=== PATIENT | male | born 1975 | race Caucasian/White ===

== ENCOUNTER 2018-10-01 08:51 | Observation (INO) | payer BC ==
[2018-10-01] MEDS ORDERED: Ondansetron INJ* 2 MG/ML VIAL IV ONE (09:22)
[2018-10-01] MEDS ORDERED: Famotidine IV* 10 MG/ML 2 ML (20 mg) IV ONE (09:22)
--- NOTE | 2018-10-01 09:43 | ED ---
HPI Chest Pain - HPI Summary HPI Summary: Pt is a 43 y/o M presenting to the ED with a chief complaint of chest pain onset around 0730. He reports it came on out of nowhere, was not doing anything specific at the time, and the episode lasted about 20 minutes before it went away. The pain is located on the L side of his chest, close to his armpit, and is described as a stabbing pain. He has episodes of chest pain that are brief and feel like pressure but tend to alleviate spontaneously. In the room, the pt denies current chest pain, diaphoresis, and SOB. He reports lightheadedness and nausea along with the CP. He states he had hamburgers for dinner last night and slept normally. He has smoked 1ppd for about 20 yrs, does not drink, and does not use drugs. He has hx of gout, but no hx HTN, DM, or asthma. His grandfather passed of an ID and his grandmother had CHF. NKDA. - History of Current Complaint Chief Complaint: EDChestPainROMI Time Seen by Provider: 10/01/18 09:10 Hx Obtained From: Patient Onset/Duration: Started Hours Ago, Resolved Timing: Intermittent, Lasting Minutes Initial Severity: Severe Current Severity: Mild Pain Intensity: 2 Pain Scale Used: 0-10 Numeric Chest Pain Location: Left Lateral Chest Pain Radiates: No Character: Sharp/Stabbing, Tightness Aggravating Factor(s): Nothing Alleviating Factor(s): Spontaneous Resolution Associated Signs and Symptoms: Positive: Chest Pain, Lightheadedness, Nausea. Negative: Shortness of Breath, Diaphoresis - Allergy/Home Medications Allergies/Adverse Reactions: Allergies Allergy/AdvReac Type Severity Reaction Status Date / Time No Known Allergies Allergy Verified 10/01/18 09:00 Home Medications: Home Medications Cetirizine* [ZyrTEC 10 MG TAB*] 10 mg PO DAILY 10/01/18 [History Confirmed 10/01] PMH/Surg Hx/FS Hx/Imm Hx Previously Healthy: Yes Endocrine/Hematology History: Denies: Hx Diabetes Cardiovascular History: Denies: Hx Hypertension Respiratory History: Denies: Hx Asthma Infectious Disease History: No Infectious Disease History: Denies: Traveled Outside the [place] in Last 30 Days - Family History Known Family History: Positive: Cardiac Disease - grandfather and grandmother - Social History Alcohol Use: None Hx Substance Use: No Substance Use Type: Reports: None Hx Tobacco Use: Yes Smoking Status (MU): Heavy Every Day Tobacco Smoker Review of Systems Negative: Skin Diaphoresis Positive: Chest Pain Negative: Shortness Of Breath Positive: Nausea Neurological: Other - lightheadedness All Other Systems Reviewed And Are Negative: Yes Physical Exam - Summary Physical Exam Summary: Constitutional: Well-developed, Obese, Alert. (-) Distressed Skin: Warm, Diaphoretic HENT: Normocephalic; Atraumatic Eyes: Conjunctiva normal Neck: Musculoskeletal ROM normal neck. (-) JVD, (-) Stridor, (-) Tracheal deviation Cardio: Rhythm regular, rate normal, Heart sounds normal; Intact distal pulses; The pedal pulses are 2+ and symmetric. Radial pulses are 2+ and symmetric. Pulmonary/Chest wall: Effort normal. (-) Respiratory distress, (-) Wheezes, (-) Rales Abd: Soft, Obese, (-) tenderness, (-) Distension, (-) Guarding, (-) Rebound Musculoskeletal: (-) Edema Neuro: Alert, Oriented x3 Psych: Mood and affect Normal Triage Information Reviewed: Yes Vital Signs On Initial Exam: Initial Vitals Temp Pulse Resp BP Pulse Ox 98.9 F 97 19 156/94 93 10/01/18 08:54 10/01/18 08:54 10/01/18 08:54 10/01/18 08:54 10/01/18 08:54 Vital Signs Reviewed: Yes Diagnostics - Vital Signs Vital Signs Temp Pulse Resp BP Pulse Ox 10/01/18 08:59 78 93 10/01/18 08:54 98.9 F 97 19 156/94 93 - Laboratory Result Diagrams: 10/01/18 09:42 10/01/18 09:42 Lab Statement: Any lab studies that have been ordered have been reviewed, and results considered in the medical decision making process. - Radiology CXR Radiology Interpretation Completed By: Radiologist Summary of Radiographic Findings: No evidence for acute intrathoracic disease. ED physician has reviewed this report. - EKG 0858 Cardiac Rate: NL - 75bpm EKG Rhythm: Sinus Rhythm ST Segment: Non-Specific Ectopy: None Summary of EKG Findings: An EKG at 0858 shows NSR at 75bpm, nonspecific T waves in inferior III, and AvF is flat. There are Q waves in III and AvF without hx of prior, no prior EKG for comparison. Chest Pain Course/Dx - Course Course Of Treatment: Pt is a 43 y/o M presenting to the ED with a chief complaint of chest pain onset around 0730. He reports it came on out of nowhere , was not doing anything specific at the time, and the episode lasted about 20 minutes before it went away. The pain is located on the L side of his chest, close to his armpit, and is described as a stabbing pain. In the room, the pt denies current chest pain, diaphoresis, and SOB. He reports lightheadedness and nausea along with the CP. Pts WBC is slightly elevated but hematology is otherwise nml. CXR shows no evidence for acute intrathoracic disease. An EKG at 0858 shows NSR at 75bpm, nonspecific T waves in inferior III, and AvF is flat. There are Q waves in III and AvF without hx of prior, no prior EKG for comparison. Upon EKG changes, he has a heart score of at least 4. As of 1032, Dr. Pierson will be admitting the pt to [facility] with a dx of typical chest pain. - Diagnoses Provider Diagnoses: Chest pain Discharge - Sign-Out/Discharge Documenting (check all that apply): Patient Departure - Discharge Plan Condition: Stable Disposition: ADMITTED TO [facility] - Billing Disposition and Condition Condition: STABLE Disposition: Admitted to [facility] - Attestation Statements Document Initiated by Netta: Yes Documenting Scribe: Karen Diggs Provider For Whom Netta is Documenting (Include Credential): Angel Reed MD. Scribe Attestation: Karen Lima, scribed for Angel Reed MD. on 10/01/18 at 1649. Scribe Documentation Reviewed: Yes Provider Attestation: The documentation as recorded by the Karen dasilva accurately reflects the service I personally performed and the decisions made by me, Angel Reed MD. Status of Scribe Document: Viewed Consult Consult: 1033 - Spoke with Dr. Pierson about the pt's present condition who will be accepting the pt to [facility].
[2018-10-01 10:00] LABS: ABS Basophils 0.1 10^3/ul (0-0.2); ABS Eosinophils 0.2 10^3/ul (0-0.6); ABS Lymphocytes 2.1 10^3/ul (1.0-4.8); ABS Monocytes 0.7 10^3/ul (0-0.8); ABS Neutrophils 6.1 10^3/ul (1.5-7.7); ABS Nucleated RBC 0 10^3/ul; Eosinophil % 1.9 %; Hematocrit 49 % (36-46); Lymphocyte % 22.5 %; Mean Corpuscular HGB Conc 35 g/dL (31-36); Mean Corpuscular Hemoglobin 29 pg (27-31); Mean Corpuscular Volume 84 fL (80-94); Mean Platelet Volume 9.1 fL (7.4-10.4); Nucleated Red Blood Cells % 0.1; Platelet Count 248 10^3/uL (150-450); Red Blood Count 5.82 10^6 /uL (4.18-5.48); Red Cell Distribution Width 13 % (10.5-15); White Blood Count 9.1 10^3/uL (3.5-10.8)
[2018-10-01] MEDS ORDERED: Lactated Ringers 1000 ML Bag* 1,000 ML IV SCH (10:00)
[2018-10-01 10:07] LABS: Activated Partial Thrombo Time 33.4 seconds (26.0-36.3); INR 0.94 (0.82-1.09)
[2018-10-01 10:25] LABS: Albumin 4.6 g/dL (3.2-5.2); Albumin/Globulin Ratio 1.8 (1-3); BUN/Creatinine Ratio 13.6 (8-20); Calcium 9.7 mg/dL (8.6-10.3); EGFR African American 126.4 (>60); EGFR Non-African American 104.5 (>60); Globulin 2.6 g/dL (2-4); Potassium 4.4 mmol/L (3.5-5.0); Total Bilirubin 0.3 mg/dL (0.2-1.0); Total Protein 7.2 g/dL (6.4-8.9)
[2018-10-01] MEDS ORDERED: Acetaminophen TAB* 325 MG PO PRN (12:11)
[2018-10-01] MEDS ORDERED: Al Hydrox/Mg Hydrox/Simet LIQ* 30 ML UDC PO PRN (12:11)
[2018-10-01] MEDS: Enoxaparin(*) 40 MG/0.4 ML SYR SUBCUT SCH (12:38)
[2018-10-01] MEDS ORDERED: Perflutren Lipid Microsphere* 3 ML VIAL ONE (14:08)
[2018-10-01 14:26] LABS: TSH (Thyroid Stimulating Horm) 1.23 mcIU/mL (0.34-5.60)
--- NOTE | 2018-10-01 15:38 | ECHO ---
*[facility]* [place] [address] Fax #: [phone] Transthoracic Echocardiogram Patient: Elgin, Height: 67 in / Lamont 170.2 cm : 1975 Weight: 229.5 lb / Study Date: 10/01/2018 104.3 kg Age: 43 BP: 132 / 94 Gender: M BMI/BSA: 36 kg/m^2 / HR: 60 bpm 2.15 m^2 *Tool Technician: * Jennifer King *Referring Physician: * Donald Pierson *Reading Physician: * Uma Sevilla Indications: Chest Pain, unspecified. Abnormal EKG. History: Risk factors: Current tobacco use. Conclusions Summary: 1. Impressions: No previous study was available for comparison. 2. Left ventricle: The cavity size is normal. Wall thickness is mildly increased. Systolic function is normal. The estimated ejection fraction is 55-60%. 3. Mitral valve: There is trivial regurgitation. 4. Aortic valve: There is trivial regurgitation. 5. Tricuspid valve: There is trivial regurgitation. 6. Pulmonic valve: There is trivial regurgitation. Study data: Transthoracic echocardiogram. Procedure: Transthoracic echocardiography was performed. Image quality was fair. The study was technically limited due to poor acoustic window availability. Intravenous contrast (Definity, 4 mls) was administered. Complete 2D, spectral Doppler, and color flow Doppler. Location: Bedside. Patient status: Inpatient. Patient room number: 440. Rhythm: Normal sinus rhythm. Findings Left ventricle: The cavity size is normal. Wall thickness is mildly increased. Systolic function is normal. The estimated ejection fraction is 55-60%. Right ventricle: The cavity size is moderately dilated. Systolic function is mildly reduced. The estimated peak pressure is >= 26 mm Hg. Ventricular septum: There is septal flattening of the interventricular septum consistent with RV volume or pressure overload. Left atrium: The atrium is normal in size. Right atrium: The atrium is normal in size. Mitral valve: The leaflets are mildly thickened. Mild thickening of the anterior leaflet. There is no evidence of stenosis. There is trivial regurgitation. Aortic valve: The valve is trileaflet. The leaflets are normal thickness. There is no evidence of stenosis. There is trivial regurgitation. The ratio of LVOT to aortic valve peak velocity is 0.91. The ratio of LVOT to aortic valve mean velocity is 0.84. The mean systolic gradient is 3.0 mm Hg. The peak systolic gradient is 5.0 mm Hg. Tricuspid valve: The leaflets are normal thickness. There is no evidence of stenosis. There is trivial regurgitation. Pulmonic valve: The leaflets are normal thickness. There is no evidence of stenosis. There is trivial regurgitation. The peak systolic gradient is 3.0 mm Hg. Aorta: Ascending aorta: The ascending aorta is appears normal. Aortic arch: The aortic arch is appears normal. The aortic root is not dilated. Pericardium: There is no pericardial effusion. Pulmonary arteries: Not well visualized. Systemic veins: Inferior vena cava: Not well visualized. Measurements Left ventricle Value Ref Right atrium Value Ref SARAH, LAX 5.0 cm 4.2 - 5.8 SI dim, ES 5.2 cm 3.4 - 5.3 ESD, LAX 3.3 cm 2.5 - 4.0 ML dim, ES, A4C 3.9 cm 2.6 - 4.4 FS, LAX 35 % 25 - 43 PW, ED, LAX (H) 1.1 cm 0.6 - 1.0 Aortic valve Value Ref PW/ID, ED, LAX 0.21 --------- Italia diam, ED 2.3 cm --------- SARAH 5.0 cm 4.2 - 5.8 Italia diam/bsa, ED 1.1 cm/m^2 --------- ESD 3.3 cm 2.5 - 4.0 Peak v, S 1.1 m/sec --------- FS 35 % 25 - 43 Mean v, S 0.73 m/sec --------- PW, ED (H) 1.1 cm 0.6 - 1.0 VTI, S 22.0 cm --------- EF 64 % 52 - 72 Mean grad, S 3.0 mm Hg --------- ESV/bsa 20 ml/m^2 11 - 31 Peak grad, S 5.0 mm Hg --------- Mass (H) 210 g 96 - 200 Mass/bsa 98 g/m^2 50 - 102 Mitral valve Value Ref Mass/ht 123.30 g/m --------- Peak E 0.69 m/sec --------- Mass/ht^2.7 49.94 g/m^2.7 --------- Peak A 0.5 m/sec --------- E', lat italia, TDI 11.4 cm/sec >=10.0 Decel time 229 ms - -------- E/e', lat italia, 6 --------- Peak E/A ratio 1.4 ---- ----- TDI E', med italia, TDI 8.8 cm/sec >=7.0 Tricuspid valve Value R ef E/e', med italia, 8 --------- TR peak v 2.14 m/sec < =2.8 TDI Peak RV-RA grad, S 18 mm Hg --------- E', avg, TDI 10.1 cm/sec --------- E/e', avg, TDI 7 <=14 Aortic root Value R ef Root diam 3.2 cm <4.3 LVOT Value Ref Peak alva, S 1 m/sec --------- Ascending aorta Value Ref Mean alva, S 0.62 m/sec --------- AAo AP diam, S 3.4 cm --------- Mean grad, S 2 mm Hg --------- AAo AP diam/bsa, S 1.6 cm/m^2 --------- Ventricular septum Value Ref Aortic arch Value Ref IVS, ED, LAX (H) 1.2 cm 0.6 - 1.0 Arch diam 2.9 cm --------- IVS, ED (H) 1.2 cm 0.6 - 1.0 Arch diam/bsa 1.3 cm/m^2 --------- Right ventricle Value Ref Decending aorta Value Ref SARAH, LAX 3.7 cm --------- Cesar peak alva 1.29 m/sec --------- SARAH minor ax, A4C (H) 5.6 cm 1.9 - 3.5 mid Left atrium Value Ref AP dim, ES 3.80 cm 3.00 - 4.00 ML dim, A4C 4.2 cm --------- Vol/bsa, ES, 1-p 18 ml/m^2 12 - 37 A4C Vol/bsa, ES, A/L 28 ml/m^2 16 - 34 Legend: (L) and (H) janeth values outside specified reference range. Prepared and electronically signed by Uma Sevilla 10/01/2018 15:37
--- NOTE | 2018-10-01 21:59 | HP ---
CC: Dr. Red, [facility]* HISTORY AND PHYSICAL: DATE OF ADMISSION: 10/01/18 PROVIDER: Kyra Brooks NP. PRIMARY CARE PROVIDER: Dr. Red at [facility]. ATTENDING PHYSICIAN WHILE IN THE HOSPITAL: Dr. Donald Pierson* (dictated by Kyra Brooks NP). CHIEF COMPLAINT: Chest pain. HISTORY OF PRESENT ILLNESS: Mr. Eisenberg is a 43-year-old male with no significant past medical history, who presented to the emergency room with complaints of left- sided chest pain. The patient reports that approximately 7: 30 this morning, he developed left-sided chest pain radiating to his left axilla. It lasted for approximately 15 minutes with the first episode and then subsided on its own. He reports after that he had a second episode again on the left chest radiating to his left axillary area that lasted approximately 20 minutes. He reports the pain was at 6, it was stabbing in nature. He reported that he felt nauseous and lightheaded with the pain. He denied any diaphoresis. He also reports that approximately 3 days prior he had the same type pain, not as severe, again on the left side of his chest radiating to his left axillary area, again lasting approximately 15 minutes. The patient reports that nothing made it worse, nothing makes it better. He reports that he is able to walk up a flight of stairs without having to stop or becoming extremely short of breath. He reports that he has been able to carry on his daily activities without any issues, but with the episode of chest pain today, he did feel lightheaded and nauseated, so he presented to the emergency room for further evaluation. While in the emergency room, the patient had routine lab work drawn. He was found to have a negative troponin. His chest pain had subsided prior to evaluation. The patient does report that he smokes a pack a day and has smoked for approximately 20 years. Denies any alcohol or drug use. Due to his chest pain, we were asked to see and evaluate him for admission. PAST MEDICAL HISTORY: None. PAST SURGICAL HISTORY: Ganglion cyst removed. HOME MEDICATION: Zyrtec 10 mg p.o. daily. ALLERGIES: No known drug allergies. FAMILY HISTORY: Grandmother with a history of CHF, grandfather with a history of ID in his 60s. Father with a history of hypertension. Mother, father, and grandparents with diabetes. No reported history of cancer. SOCIAL HISTORY: The patient smokes a pack per day. He has smoked for the past 20 years. He denies any alcohol or illicit drug use. He is a construction person. He is . Surrogate decision maker in the even he is unable to make his own decision is his . He is a full code. REVIEW OF SYSTEMS: He denies any fever or unintended weight loss. He does report left-sided chest pain that radiates to his left axillary area. No edema. No cough or hemoptysis. He does report some mild shortness of breath. He does report nausea. Denies any vomiting, diarrhea, abdominal pain, hematuria , dysuria, focal weakness, or sensory loss. He denies any visual complaints, dysphagia, arthralgias, myalgias, rashes, lesions, open sores, psychosis, or anxiety. PHYSICAL EXAMINATION GENERAL: At this time, Mr. Eisenberg is a 43-year-old male. He is alert and oriented, sitting on the stretcher in the emergency room. He is well developed , well nourished, in no acute distress. VITAL SIGNS: Blood pressure 150/82, temperature 96.1, pulse 77, respirations are 20, O2 saturation 97%. HEENT: Head is atraumatic, normocephalic. Eyes: EOMs are intact. Sclerae anicteric and not pale. Oral mucosa appeared to be moist. NECK: Supple. LUNGS: Clear to auscultation bilaterally. No wheezes, rales, or rhonchi. CHEST: He does have tenderness to palpation to the left axillary area, but does report this is not as sharp as the pain he has been experiencing. CARDIAC: S1, S2. Regular rate and rhythm. No murmurs, rubs, or gallops. ABDOMEN: Soft and nontender. Bowel sounds are present x4. MUSCULOSKELETAL: He is able to move all 4 extremities with 5/5 strength. There is no clubbing or cyanosis. There is no edema. Pedal pulses are +2 bilaterally. Skin: Intact. NEUROLOGIC: He is awake, alert and oriented x3. Speech is clear. Thought processes intact. There is no gross focal deficit. PSYCHIATRIC: He denies any. He is appropriate and calm. DIAGNOSTIC STUDIES/LAB DATA: WBCs were 9.1, RBCs 5.8, hemoglobin 17.0, hematocrit was 49, platelet count was 248. INR 0.94. APTT was 33.4. Sodium 139, potassium 4, chloride 107, carbon dioxide is 25, anion gap of 7, BUN is 11 , creatinine 0.81, glucose is 104. Hemoglobin A1c is 6.0, lactic acid is 1.3, calcium 9.7, magnesium 2.0. ASTs were 23, ALTs were 39, alkaline phosphatase was 63, troponin was 0.00. BNP was 7. TSH was 123. He had a chest x-ray, radiologist's impression: No evidence of intrathoracic disease. He had an electrocardiogram, which showed sinus rhythm at a rate of 75. He does have T-wave inversions in leads III and aVF. ASSESSMENT AND PLAN: 1. Chest pain. The patient will be admitted. to rule out acute coronary syndrome. He will be placed on telemetry and monitored overnight. We will get a transthoracic echocardiogram and a nuclear stress test tomorrow. The patient does have risk factors as this is his third episode of chest pain in the past week. He has a PAULINO score of 1 giving him a 5% risk of 14 days all-cause mortality, new or recurrent ID or severe recurrent ischemia requiring urgent revascularization. I will order a lipid panel and hemoglobin A1c for the morning. He will have a repeat EKG in the a.m. 2. FEN: The patient can have a regular diet. 3. Code status: He is a full code. 4. DVT prophylaxis: I will place him on Lovenox subcu. TIME SPENT: Time spent on this admission was 60 minutes, greater than half the time was spent at the bedside reviewing the events leading thus far to his hospitalization, performing my physical exam, and reviewing my plan of care. I have discussed this with my attending Dr. Donald Pierson, he is in agreement with my plan. KYRA JUSTINE, RADIOSONDE SPECIALIST [id number]/[facility] #: [id number] JEAN-PIERRE
[2018-10-02 06:21] LABS: HDL Cholesterol 20.8 mg/dL
[2018-10-02] MEDS ORDERED: Cetirizine* 10 MG TAB PO SCH (09:00)
[2018-10-02] MEDS ORDERED: Aspirin EC TAB* 81 MG TAB.EC PO SCH (09:00)
[2018-10-02 11:30] VITALS: BP 117/67
[2018-10-02] MEDS ORDERED: Metoprolol Succinate XL TAB* 25 MG PO ONE (12:02)
[2018-10-02] MEDS: Enoxaparin(*) 40 MG/0.4 ML SYR SUBCUT SCH (12:34)
[2018-10-02] MEDS ORDERED: Atorvastatin* 20 MG TAB PO ONE (12:50)
[2018-10-02] MEDS ORDERED: Nitroglycerin TAB 0.4 MG* 0.4 MG TAB SL PRN (13:19)
--- NOTE | 2018-10-02 14:26 | CONS ---
CC: Rosa Red NP* CARDIOLOGY CONSULTATION: DATE OF CONSULT: 10/02/18 PRIMARY CARE PHYSICIAN: Rosa Red NP in [facility] Medicine. INDICATION FOR THE CONSULT: Asked by Dr. Ndaer Luna (hospitalist) to assess the patient from a cardiac status in light of the results of the nuclear portion of the stress test showing an intermediate risk nuclear portion of the stress test with [id number] area of reversible ischemia. HISTORY OF PRESENT ILLNESS: Mr. Eisenberg is a 43-year-old gentleman with no prior known cardiac history. Specifically, he denies any history of myocardial infarction, congestive heart failure, or significant heart rhythm disturbance. With regard to cardiac risk, he also denies any known history of hypertension, hyperlipidemia, or diabetes. He has no immediate family history of coronary artery disease, but he does have a history of smoking 1 pack a day and has smoked for approximately 20 years. 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 Yesterday, he got up and had coffee at 5:30 in the morning and did not have breakfast. He was on the job by 7:30 and while standing reviewing emails on his phone, he developed the onset of a sharp stabbing left-sided chest discomfort that he states lasted a total of some 15 to 20 minutes. According to the EMS note, he had not had anything like this before. The EMS note described that there was some pain on palpation. It stayed in his left side of the chest and went up to maybe his axilla. He also stated that he felt a little nauseousness with this. The symptom was still present on the arrival and they performed an EKG dated 10/01/18, timed 8:25:36, which showed sinus rhythm with nonspecific flat T- wave or borderline biphasic in aVF, T-wave inversion in III, normal T-wave in lead II, no acute ST-T wave changes elsewhere. Repeat EKG was then done at 8:38 with similar findings and again at 8:47 with similar findings. He presented to the emergency room where an EKG was done that again showed similar findings. Over the course of the hospitalization, overnight he had cardiac enzymes that revealed troponins of 0.00, 0.00, and 0.00. His B-natriuretic peptide was 7. He had a hemoglobin A1c of 6.0. He underwent an exercise nuclear stress test performed by myself for the EKG portion, during which time he exercised by standard Fred protocol to 7 minutes 30 seconds achieving 10.1 METs, heart rate 87% of predicted with a normal 1- minute recovery heart rate with rest. There was normal blood pressure response to exercise. There was no reproduction of the patient's left-sided symptoms or any other type of anginal symptom with exercise. He had no EKG changes suggestive of ischemia and no arrhythmias generated. The nuclear portion was interpreted by the radiologists for which they described his overall ejection fraction with stress to be 50%, at rest 56%. Evaluation of the wall motion suggested global hypokinesis, a [id number] area of reversible ischemia to the anterolateral wall. It was quoted to be an intermediate risk study. It should be noted that the patient has had no further episodes of the left-sided discomfort throughout the night or this morning when up and about in his room or clearly during the stress test or afterwards. PAST MEDICAL HISTORY: Prior to admission, none. PAST SURGICAL HISTORY: He had a ganglion cyst removed. HOME MEDICATIONS: Zyrtec 10 mg a day (thus, he may have a history of seasonal allergies). ALLERGIES: Probable seasonal allergies with no known drug allergies. FAMILY HISTORY: No history of coronary artery disease in the immediate family. Father has hypertension. Mother, father, and grandparents with diabetes. A grandfather had a history of myocardial infarction in his 60s. SOCIAL HISTORY: He smokes a pack a day. He denies any illicit drug usage or alcohol usage. 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 REVIEW OF SYSTEMS: As per the H and P with no additional changes. PHYSICAL EXAMINATION: When I see him now, reveals vital signs, 117/67, pulse is 62 and regular, respirations 16, O2 saturation 94% to 97% on room air. Neck is supple with no obvious increased JVP. Carotid with good upstroke and volume without bruits. Conjunctivae are pink. Sclerae are clear. Lungs reveal no accessory muscle usage. There is good excursion. There are no active rales, rhonchi, or wheezes. Heart reveals no palpable heaves or thrills. Normal S1, S2, with no S3, S4, or gallop. No significant systolic or diastolic murmurs were appreciated. Abdomen is soft, nontender, without organomegaly. He is obese in nature. Extremities are without clubbing, cyanosis, or casey pitting edema. Peripheral pulses are intact. Femoral pulse noted without bruit. Neuro : The patient is alert, oriented with normal mentation. Musculoskeletal: The patient moves all extremities appropriately. Had normal gait walking on stress test. Psychiatric: The patient with normal affect. DIAGNOSTIC STUDIES/LAB DATA: Laboratory results during the hospitalization: Hemoglobin and hematocrit of 17 and 49 with a platelet count of 248,000, white count 9100. Sodium 139, potassium 4.4, chloride 107, bicarb 25, BUN and creatinine of 11 and 0.8. SGOT 23, SGPT 39, alk phos 63, TSH 1.23, B- natriuretic peptide is 7, troponins 0.00 x3. Fasting sugar 104, hemoglobin A1c 6.0. Chest x-ray report suggested no evidence of acute intrathoracic disease. OVERALL ASSESSMENT: Lamont presents now with left-sided symptoms atypical in nature, occurring at rest, but despite multiple episodes of this (x2), he did not have any abnormal troponin values. His EKG did not show any acute ST segment changes. Subsequent exercise stress test revealed a low risk Clements score EKG portion with a reported intermediate risk nuclear report, although the description would be a low to intermediate risk as he had a small-to- moderate zone reported of reversible ischemia. Of note, the stress test was done on no medications. At this point in time, I discussed with the patient the options of how to proceed. Being that he has had no recurrent symptoms, I explained that we could start him on medical management with aspirin, beta-mateo therapy, statin therapy, and consider having him follow up in a week to 2 weeks with a spanish tutor for ongoing assessment and consideration of timing perhaps a repeat stress test on medical management. I did explain the other choice, which would be to perform a diagnostic cardiac catheterization to rule out the presence of critical coronary artery disease for which perhaps intervention might be appropriate. He thought about this at length and did not wish to undergo cardiac catheterization despite me offering it multiple times to give him a definitive assessment and rule out the presence of significant coronary artery disease. As such at this point, we will start him on the beta-mateo therapy, put him on statin therapy, we will wait several hours, have him walking the jerez and make sure it does not provoke any symptoms. If it does not, from our standpoint , he could be discharged to home with close followups through his family doctor , Rosa Red NP and with a referral by Rosa Red to a spanish tutor of her choice in his area as he does not live in the [place] area. Thank you very much for having asked me to consult with him, and as such, if you have any questions, please feel free to speak with me. Addendum: I personally spoke with Rosa Cantu NP regarding all of the above. She understood this and will be setting up the appt. for early next week and will refer to a spanish tutor of her and patient's preference in their area, as this was the patient's preference. [id number]/CPS #: [id number]
--- NOTE | 2018-10-02 18:57 | DS ---
CC: Dr. Red, [place], [place]* DISCHARGE SUMMARY: DATE OF ADMISSION: 10/01/18 DATE OF DISCHARGE: 10/02/18 PRIMARY CARE PROVIDER: Dr. Red, [facility], [place]. DISPOSITION ON DISCHARGE: To home. CONDITION ON DISCHARGE: Good. PRIMARY DIAGNOSES: 1. Chest pain. 2. Concern for coronary artery disease. SECONDARY DIAGNOSES: Include: 1. Metabolic syndrome, hemoglobin A1c 6.0. 2. Tobacco abuse disorder. MEDICATIONS ON DISCHARGE: Include: 1. Aspirin 81 mg daily. 2. Atorvastatin 20 mg in the evening. 3. Metoprolol succinate 25 mg daily. Please note the addition of these 3 medications and cetirizine 10 mg daily. PERTINENT LABORATORY DATA: Troponin I of 0.00 on 3 consecutive checks, hemoglobin A1c 6.0, total cholesterol 166, LDL 91, HDL 20. PROCEDURES PERFORMED DURING STAY: Exercise stress with nuclear imaging. Impression: No active ischemia on EKG portion of exercises stress. Nuclear imaging revealed small to moderate area reversible change in the anterior lateral wall. Assessment was intermediate risk. Transthoracic echocardiogram: Impression: Left ventricular cavity size is normal. Wall thickness is mildly increased. Systolic function is normal. Estimated LVEF of 55% to 60%, trivial regurgitation of mitral valve, aortic valve, tricuspid valve and pulmonary valve. HISTORY OF PRESENT ILLNESS AND HOSPITAL COURSE: This is a 43-year-old man with past medical history as outlined in the history of present illness on the day of admission presented to the hospital with several episodes of left-sided chest pain the day prior. He had 3 negative troponins and non-ischemic EKGs. Because of his tobacco use, prediabetes and concerning story, he underwent transthoracic echocardiogram as well as exercise stress with nuclear imaging as indicated above. Because of intermediate risks findings on his exercise stress, a Cardiology consult was obtained with Dr. Kenney. At this point, the patient is on no medical management. Cardiac catheterization was recommended, declined by the patient and recommendation for optimal medical management with initiation of statin, beta- mateo and aspirin was made. I discussed at length with patient, he is in agreement. I also discussed at length about tobacco cessation. The patient is currently contemplated and plans on quitting upon discharge. The patient was ambulated around the unit several times prior to his discharge without any chest pain. There are no complications during the course of the hospital stay. At followup please: 1. Referral to customer management specialist near a local community. 2. Titrate medications that were started as indicated above. 3. Evaluate for new symptomatology/side effects from initiation of new medications. 4. Encourage and assist with tobacco cessation. The patient did seem interested in Wellbutrin. Reasons for return to the hospital including but not limited to recurrent or worsening symptoms including chest pain, shortness of breath, nausea, vomiting, lightheadedness, loss of consciousness or near loss of consciousness, bleeding from any source were discussed with the patient and his . They did acknowledge understanding. TIME SPENT: Greater than 60 minutes was spent on the discharge of this patient , greater than half was spent [id number] with the patient. [id number]/CPS #: [id number]
[2018-10-03] MEDS ORDERED: Metoprolol Succinate XL TAB* 25 MG PO SCH (09:00)
[2018-10-03] MEDS ORDERED: Atorvastatin* 20 MG TAB PO SCH (21:00)
== END 2018-10-02 15:20 | disposition home or self-care (01) ==
LOC: ED 08:51 → MEDTELE 10:40
PROVIDERS: ADMIT Internal Medicine; ATTEND Internal Medicine
DX: R07.9 Chest pain, unspecified (principal); E88.81 Metabolic syndrome and other insulin resistance; D58.2 Other hemoglobinopathies; F17.210 Nicotine dependence, cigarettes, uncomplicated; R42 Dizziness and giddiness; R11.0 Nausea; Z79.82 Long term (current) use of aspirin; Z79.899 Other long term (current) drug therapy
CPT/HCPCS: 36415; 71045; 78452; 80053; 80061; 83036; 83605; 83735; 83880; 84443; 84484; 85025; 85610; 85730; 93005; 93017; 93306; 96365; 96372; 96375; 99283; 99406; A9270-GY; A9502; C8929; G0378; J1650; J2405